=== PATIENT | male | born 1955 | race Caucasian/White ===

== ENCOUNTER 2020-07-25 14:17 | Inpatient (IN) | payer MEDICAID ==
[2020-07-25] MEDS ORDERED: Acetaminophen 325 MG Tab PO PRN ×2 (15:38→15:45)
[2020-07-25] MEDS ORDERED: Ondansetron 4 MG Tab.DIS PO PRN ×2 (15:38→15:45)
[2020-07-25] MEDS ORDERED: PROMETHAZINE TOP PRN (15:45)
[2020-07-25] MEDS ORDERED: Testosterone Cypionate 200 MG/ML MDV IM SCH (15:45)
[2020-07-25] MEDS ORDERED: BENZOCAINE PO PRN (15:45)
[2020-07-25] MEDS ORDERED: Ibuprofen 200 MG Tab PO PRN (15:45)
[2020-07-25] MEDS ORDERED: [UNRECOGNIZED DRUG - OTHER] PO PRN (15:45)
[2020-07-25] MEDS ORDERED: Albuterol 8 GM Inhaler INH PRN (15:45)
[2020-07-25] MEDS ORDERED: MENTHOL PO PRN (15:45)
[2020-07-25] MEDS ORDERED: DIPHENHYD PO SCH (17:30)
[2020-07-25] MEDS ORDERED: NYSTATIN PO SCH (17:30)
[2020-07-25] MEDS ORDERED: metFORMIN 500 MG Tab #OWN MED# PO SCH (17:30)
[2020-07-25] MEDS ORDERED: LIDOCAINE PO SCH (17:30)
--- NOTE | 2020-07-25 17:42 | PCM.PN ---
- General Info Date of Service: 07/25/20 Functional Status: Reports: Pain Controlled, Ambulating (by self to bathroom and back to chair) Pain Score: 4 - Review of Systems General: Reports: Weakness (generally weak in legs), Fatigue HEENT: Reports: No Symptoms Pulmonary: Reports: Shortness of Breath, Cough, Sputum. Denies: Hemoptysis Cardiovascular: Denies: Chest Pain, Palpitations, Edema, Lightheadedness Gastrointestinal: Reports: No Symptoms Genitourinary: Reports: No Symptoms Musculoskeletal: Reports: No Symptoms Skin: Reports: No Symptoms Neurological: Reports: No Symptoms. Denies: Headache, Seizure, Syncope, Change in Speech Psychiatric: Reports: No Symptoms - Patient Data Vitals - Most Recent: Last Vital Signs Temp 96.9 F 07/25/20 16:52 Pulse 106 H 07/25/20 16:52 Resp 28 H 07/25/20 16:52 BP 111/71 07/25/20 16:52 Pulse Ox 92 L 07/25/20 16:52 Weight - Most Recent: 165 lb 11.2 oz Med Orders - Current: Current Medications Acetaminophen (Tylenol) 650 mg PO Q4H PRN PRN Reason: Pain (Mild 1-3)/fever Acetaminophen (Tylenol) 650 mg PO Q6H PRN PRN Reason: Pain/Fever Aspirin (Halfprin) 81 mg PO DAILY [facility] Budesonide (Pulmicort) 0.5 mg NEB BIDRT [facility] Cyclobenzaprine HCl (Flexeril) 10 mg PO TID [facility] Fentanyl (Duragesic) 75 mcg TOP Q72H [facility] Ibuprofen (Motrin) 600 mg PO TID PRN PRN Reason: Pain/Fever Metformin HCl (Glucophage) 500 mg PO BIDMEALS [facility] Metoprolol Succinate (Toprol Xl) 75 mg PO BEDTIME [facility] Nicotine (Habitrol) 21 mg TOP DAILY [facility] Non-Formulary Medication (Albuterol Sulfate [Proair Respiclick]) 2 puff INH Q4H PRN PRN Reason: Shortness of Breath Non-Formulary Medication (Benzocaine/Menthol [Cepacol Sore Throat Lozenge]) 1 each PO Q4H PRN PRN Reason: Sore Throat Non-Formulary Medication (Cholecalciferol (Vitamin D3) [Vitamin D3]) 2,000 unit PO DAILY [facility] Non-Formulary Medication (Dexlansoprazole [Dexilant]) 60 mg PO DAILY [facility] Non-Formulary Medication (Diphenhyd/Lidocaine/Nystatin) 15 ml PO WITHMEALSANDBED [facility] Non-Formulary Medication (Hydromorphone [Dilaudid]) 4 mg PO Q4H PRN PRN Reason: Pain Non-Formulary Medication (Insulin Detemir) 30 units SUBCUT BEDTIME [facility] Non-Formulary Medication (Magnesium Oxide [Magnesium Oxide]) 400 mg PO BID [facility] Non-Formulary Medication (Ondansetron) 8 mg PO Q8H PRN PRN Reason: Nausea Non-Formulary Medication (Promethazine Topical Gel) 1 applic TOP Q6H PRN PRN Reason: Nausea Non-Formulary Medication (Rosuvastatin [Crestor]) 10 mg PO BEDTIME [facility] Non-Formulary Medication (Spiriva Respimat ) 2 puff INH DAILY [facility] Nystatin (Nystatin Ointment) gm TOP BID [facility] Ondansetron HCl (Zofran Odt) 4 mg PO Q4H PRN PRN Reason: nausea, able to take PO Pantoprazole Sodium (Protonix) 40 mg PO DAILY [facility] Prednisone (Prednisone) 20 mg PO DAILY@1200 [facility] Stop: 07/28/20 12:01 Testosterone Cypionate (Depo-Testosterone) 200 mg IM Q30D [facility] - Exam General: Alert, Oriented, Cooperative, No Acute Distress Neck: Supple, Trachea Midline, No JVD Lungs: Normal Respiratory Effort, Crackles (coarse), Rhonchi Cardiovascular: Regular Rate, Regular Rhythm GI/Abdominal Exam: Soft, Non-Tender Back Exam: Normal Inspection, Full Range of Motion Extremities: Normal Inspection, Normal Range of Motion, Non-Tender, No Pedal Edema, Normal Capillary Refill Peripheral Pulses: 2+: Radial (L), Radial (R), Posterior Tibial (L), Posterior Tibial (R) Skin: Warm, Dry, Intact Neurological: No New Focal Deficit, Normal Speech, Strength Equal Bilateral, Sensation Intact, Cranial Nerves Intact. No: Normal Gait (slow, weak, but able. ) Psy/Mental Status: Alert, Normal Affect, Normal Mood Sepsis Event Note - Focused Exam Vital Signs: Vital Signs Temp Pulse Resp BP Pulse Ox 07/25/20 16:52 96.9 F 106 H 28 H 111/71 92 L - Problem List Review Problem List Initiated/Reviewed/Updated: Yes - Plan Plan:: This patient was discharged from [facility] today and sent here for swing bed admit. Patient has lung cancer metastasis to liver and bone. Patient is alert and oriented. He is a Full Code. Patient seems to have some, but poor understanding of why he is here for swing bed. Patient reports that he is here go get his infection in his lungs better and to get stronger. I discussed with the patient about his lung cancer and possible end of life care. He reports he would like to just get stronger, to maybe walk with a cane or walker and then get back home. He reports that he needs to get his lungs better so he can get back to doing chemo. However, he has also told me the doctors discharged him from [place] because they dont know what else to do about his cancer. The patient has refused hospice care. I will admit this patient swing for PT. He is currently not in distress. But, his prognosis is very poor due to his respiratory failure and metastatic cancer. Depending how long he stays swing bed here, I think he will during this admit.
[2020-07-25] MEDS ORDERED: metFORMIN 500 MG Tab PO SCH (19:00)
[2020-07-25] MEDS ORDERED: Insulin Glarg,Human.Rec.Analog 100 Unit/ML SUBCUT SCH (20:00)
[2020-07-25] MEDS ORDERED: Metoprolol Succinate 25 MG Tab.ER PO SCH (20:00)
[2020-07-25] MEDS ORDERED: ROSUVASTATIN 10 MG PO SCH (20:00)
[2020-07-25] MEDS ORDERED: fentaNYL 75 MCG/HR Transdermal Patch TOP SCH (20:00)
[2020-07-25] MEDS ORDERED: FENTANYL 75 MCG/HR TOP SCH (20:15)
[2020-07-25] MEDS: Cyclobenzaprine 10 MG Tab PO SCH (20:28)
[2020-07-25] MEDS: Budesonide 0.5 MG/2 ML Neb Susp NEB SCH (20:29)
[2020-07-25] MEDS: MAGNESIUM OXIDE 400 MG PO SCH (20:32)
[2020-07-25] MEDS: metFORMIN 500 MG Tab #OWN MED# PO SCH (20:57)
[2020-07-25] MEDS ORDERED: METOPROLOL SUCCINATE 100 MG PO SCH (21:00)
[2020-07-25] MEDS: HYDROMORPHONE 4 MG PO PRN (22:45)
[2020-07-25] MEDS ORDERED: Temazepam 15 MG Cap PO PRN (23:18)
[2020-07-26] MEDS: Nystatin Ointment 15 GM Tube TOP SCH ×2 (02:05→08:28)
[2020-07-26] MEDS ORDERED: Albuterol/Ipratropium 3.0-0.5 MG/3 ML Neb Soln NEB ONE ×3 (04:26→10:18)
[2020-07-26] MEDS ORDERED: methylPREDNISolone Sodium Succinate 125 MG/2 ML SDV IVPUSH STA (04:29)
[2020-07-26] MEDS ORDERED: Furosemide 40 MG/4 ML VIAL IVPUSH ONE (04:39)
[2020-07-26] MEDS ORDERED: Albuterol/Ipratropium 3.0-0.5 MG/3 ML Neb Soln ONE (04:46)
--- NOTE | 2020-07-26 04:46 | PCM.PN ---
- General Info Date of Service: 07/26/20 Functional Status: Reports: New Symptoms - Review of Systems General: Reports: No Symptoms HEENT: Reports: No Symptoms Pulmonary: Reports: Shortness of Breath Cardiovascular: Reports: No Symptoms Gastrointestinal: Reports: No Symptoms Genitourinary: Reports: No Symptoms Musculoskeletal: Reports: No Symptoms Skin: Reports: No Symptoms Neurological: Reports: No Symptoms Psychiatric: Reports: No Symptoms - Patient Data Vitals - Most Recent: Last Vital Signs Temp 98.2 F 07/25/20 19:14 Pulse 114 H 07/25/20 19:14 Resp 18 07/25/20 19:14 BP 91/66 07/25/20 19:14 Pulse Ox 93 L 07/25/20 23:00 Weight - Most Recent: 165 lb 11.2 oz Lab Results Last 24 Hours: Laboratory Results - last 24 hr 07/25/20 Range/Units 20:32 POC Glucose 280 H (75-105) mg/dl Med Orders - Current: Current Medications Acetaminophen (Tylenol) 650 mg PO Q4H PRN PRN Reason: Pain (Mild 1-3)/fever Acetaminophen (Tylenol) 650 mg PO Q6H PRN PRN Reason: Pain/Fever Albuterol (Ventolin Hfa) 0 gm INH Q4H PRN PRN Reason: Shortness of Breath Aspirin (Halfprin) 81 mg PO DAILY [facility] Budesonide (Pulmicort) 0.5 mg NEB BIDRT [facility] Last Admin: 07/25/20 20:29 Dose: 0.5 mg Documented by: Cholecalciferol (Vitamin D3) 50 mcg PO DAILY [facility] Cyclobenzaprine HCl (Flexeril) 10 mg PO TID [facility] Last Admin: 07/25/20 20:28 Dose: 10 mg Documented by: Fentanyl (Duragesic) 75 mcg TOP Q72H [facility] Last Admin: 07/26/20 02:03 Dose: Not Given Documented by: Ibuprofen (Motrin) 600 mg PO TID PRN PRN Reason: Pain/Fever Insulin Glargine (Lantus) 30 unit SUBCUT BEDTIME [facility] Last Admin: 07/25/20 20:35 Dose: 30 units Documented by: Metformin HCl (Glucophage) 500 mg PO BIDMEALS [facility] Metformin HCl (Glucophage) 500 mg PO BIDMEALS [facility] Stop: 07/26/20 08:01 Last Admin: 07/25/20 20:57 Dose: 500 mg Documented by: Metoprolol Succinate (Toprol Xl) 100 mg PO BEDTIME [facility] Last Admin: 07/25/20 20:56 Dose: Not Given Documented by: Miscellaneous Information (Remove Patch) 1 ea TRDERM Q72H [facility] Miscellaneous Information (Remove Patch) 1 ea TRDERM Q24H [facility] Nicotine (Habitrol) 21 mg TOP DAILY [facility] Non-Formulary Medication (Benzocaine/Menthol [Cepacol Sore Throat Lozenge]) 1 each PO Q4H PRN PRN Reason: Sore Throat Dexlansoprazole [ Dexilant] 60 Mg #Own Med# 60 mg PO DAILY [facility] Non-Formulary Medication (Diphenhyd/Lidocaine/Nystatin) 15 ml PO WITHMEALSANDBED [facility] Hydromorphone [ Dilaudid] 4 Mg #Own Med# 4 mg PO Q4H PRN PRN Reason: Pain Last Admin: 07/25/20 22:45 Dose: 4 mg Documented by: Magnesium Oxide 400 (Mg #Own Med#) 400 mg PO BID [facility] Last Admin: 07/25/20 20:32 Dose: 400 mg Documented by: Non-Formulary Medication (Promethazine Topical Gel) 1 applic TOP Q6H PRN PRN Reason: Nausea Rosuvastatin [ Crestor] 10 Mg #Own Med# 10 mg PO BEDTIME [facility] Last Admin: 07/25/20 20:57 Dose: 10 mg Documented by: Spiriva Respimat 2. 5mcg/Actuation Inhaler #Own Med# 2 puff INH DAILY [facility] Nystatin (Nystatin Ointment) 0 gm TOP BID [facility] Last Admin: 07/26/20 02:05 Dose: Not Given Documented by: Ondansetron HCl (Zofran Odt) 4 mg PO Q4H PRN PRN Reason: nausea, able to take PO Ondansetron HCl (Zofran Odt) 8 mg PO Q8H PRN PRN Reason: Nausea Patient's Own MedicationLosartan /Hctz 100/25 Mg 1 each PO DAILY [facility] Prednisone (Prednisone) 20 mg PO DAILY@1200 [facility] Stop: 07/28/20 12:01 Temazepam (Restoril) 15 mg PO BEDTIME PRN PRN Reason: Insomnia Last Admin: 07/25/20 23:32 Dose: 15 mg Documented by: Discontinued Medications Albuterol/Ipratropium (Duoneb 3.0-0.5 Mg/3 Ml) 3 ml NEB ONETIME ONE Stop: 07/26/20 04:27 Last Admin: 07/26/20 04:37 Dose: 3 ml Documented by: Albuterol/Ipratropium (Duoneb 3.0-0.5 Mg/3 Ml) 3 ml NEB ONETIME ONE Stop: 07/26/20 04:27 Last Admin: 07/26/20 04:37 Dose: 3 ml Documented by: Albuterol/Ipratropium (Duoneb 3.0-0.5 Mg/3 Ml) Confirm Administered Dose 6 ml .ROUTE .STK-MED ONE Stop: 07/26/20 04:47 Fentanyl (Duragesic) 75 mcg TOP Q72H [facility] Furosemide (Lasix) 40 mg IVPUSH ONETIME ONE Stop: 07/26/20 04:40 Metformin HCl (Glucophage) 500 mg PO BIDMEALS [facility] Stop: 07/26/20 08:01 Metformin HCl (Glucophage) 500 mg PO BIDMEALS [facility] Stop: 07/26/20 17:31 Metformin HCl (Glucophage) 500 mg PO BIDMEALS [facility] Stop: 07/26/20 17:31 Methylprednisolone Sodium Succinate (Solu-Medrol) 125 mg IVPUSH NOW STA Stop: 07/26/20 04:30 Last Admin: 07/26/20 04:41 Dose: 125 mg Documented by: Metoprolol Succinate (Toprol Xl) 75 mg PO BEDTIME [facility] - Exam Quality Assessment: Supplemental Oxygen (4L NC at 66%, Converted to 15L NRB to 90%.) General: Severe Distress (Respiratory Distress) Neck: Trachea Midline, No JVD Lungs: Rales (Sounds Wet throughout.), Rhonchi (Coarse), Other (Tripod position, pursed lip breathing, accessory muscle use. Respiratory Distress. ) Cardiovascular: Tachycardia (120s) Sepsis Event Note - Evaluation Sepsis Screening Result: No Definite Risk - Focused Exam Vital Signs: Vital Signs Temp Pulse Resp BP Pulse Ox Pulse Ox 07/25/20 23:00 93 L 07/25/20 19:14 98.2 F 114 H 18 91/66 93 L 07/25/20 16:52 96.9 F 106 H 28 H 111/71 92 L - Problem List Review Problem List Initiated/Reviewed/Updated: Yes - My Orders Last 24 Hours: My Active Orders 07/25/20 23:18 Temazepam [Restoril] 15 mg PO BEDTIME PRN 07/26/20 04:26 RT Aerosol Therapy [RC] ASDIRECTED RT Aerosol Therapy [RC] ASDIRECTED 07/26/20 08:00 Patient's Own Medication [Ptom] 1 each PO DAILY - Plan Plan:: 07/25/2020 1700 This patient was discharged from [facility] today and sent here for swing bed admit. Patient has lung cancer metastasis to liver and bone. Patient is alert and oriented. He is a Full Code. Patient seems to have some, but poor understanding of why he is here for swing bed. Patient reports that he is here go get his infection in his lungs better and to get stronger. I discussed with the patient about his lung cancer and possible end of life care. He reports he would like to just get stronger, to maybe walk with a cane or walker and then get back home. He reports that he needs to get his lungs better so he can get back to doing chemo. However, he has also told me the doctors discharged him from [place] because they dont know what else to do about his cancer. The patient has refused hospice care. I will admit this patient swing for PT. He is currently not in distress. But, his prognosis is very poor due to his respiratory failure and metastatic cancer. Depending how long he stays swing bed here, I think he could during this admit due to his metastasis and poor/guarded prognosis. 07/26/2020 0420am I was told by Bridgette DURAN the patient had just fallen from slipping while trying to get up without assistance, and was struggling to breath. She reports he is having a hard time breathing. I went and saw this patient, the patient is sitting up on the side of his bed in a tripod position, pursed lip breathing, not able to talk. His oxygen saturation is 66% on 4L NC. Patient placed on a NRB at 15L, to 90% saturation. Duonebs are ordered x2. Patient lung sounds throughout, coarse as before, but now sound more wet. No flail chest or splinting to indicate a pneumo, but will CXR. I will also order Lasix to see if this helps as well due to wet sound. 07/26/2020 0450am Patient is now saturating 97% on NRB 15L. Patient is now laying in bed with HOB elevated 45 degrees. He does have pursed lip breathing, but his respiratory rate is now 28, he is now able to talk to me in sentences. He is now talking and reports is starting to feel better. However, no IV access has been able to be obtained from multiple attempts. RNs to continue attempts to gain IV access. Once IV access is obtained, to give IV medications. If unable to obtain an IV, may consider IM medications. I asked patient earlier about his code status and it was Full Code. I again asked him about his code status about intubation, vent, and CPR, medications. He does not answer me. He looks at me, but does not verbally answer. I asked him 3 times, still no verbal response to my question. But, when I ask him about orientation, he verbally responds without issue and correctly. I again explain its important to know his code status, he again for the 4th time does not answer me. He will remain a Full Code. 07/26/2020 0535am RN unable to obtain IV access after multiple attempts. Have ordered medications IM instead of IV. Patient to radiology for CXR. 07/26/2020 0555am Patient failed to mention he has a port, this was seen on CXR. No visibly seen well on chest during exam. Will access port and give the previous ordered medications now via port access, not IM. CXR: no edema.
[2020-07-26] MEDS ORDERED: methylPREDNISolone Sodium Succinate 125 MG/2 ML SDV IM STA (05:36)
[2020-07-26] MEDS ORDERED: Furosemide 40 MG/4 ML VIAL IM ONE (05:36)
[2020-07-26] MEDS ORDERED: Hydrochlorothiazide 25 MG Tab PO SCH (08:00)
[2020-07-26] MEDS ORDERED: metFORMIN 500 MG Tab #OWN MED# PO SCH ×3 (08:00→17:30)
[2020-07-26] MEDS ORDERED: DEXLANSOPRAZOLE 60 MG PO SCH (08:00)
[2020-07-26] MEDS ORDERED: Nicotine 21 MG/24 Hr Patch TOP SCH (08:00)
[2020-07-26] MEDS ORDERED: SPIRIVA RESPIMAT INH SCH (08:00)
[2020-07-26] MEDS ORDERED: Aspirin 81 MG Tab.EC PO SCH (08:00)
[2020-07-26] MEDS ORDERED: LOSARTAN PO SCH (08:00)
[2020-07-26] MEDS ORDERED: HCTZ PO SCH (08:00)
[2020-07-26] MEDS ORDERED: Cholecalciferol (Vitamin D3) 25 MCG Tab PO SCH (08:00)
[2020-07-26] MEDS ORDERED: Pantoprazole 40 MG Tab.CR PO SCH (08:00)
[2020-07-26] MEDS ORDERED: Losartan 100 MG Tab PO SCH (08:00)
[2020-07-26] MEDS: MAGNESIUM OXIDE 400 MG PO SCH (08:28)
[2020-07-26] MEDS: metFORMIN 500 MG Tab #OWN MED# PO SCH (08:28)
[2020-07-26] MEDS: HYDROMORPHONE 4 MG PO PRN (08:38)
[2020-07-26] MEDS: Budesonide 0.5 MG/2 ML Neb Susp NEB SCH (08:38)
[2020-07-26] MEDS: Cyclobenzaprine 10 MG Tab PO SCH (08:38)
[2020-07-26 08:52] LABS: CHLORIDE,CL 96 mEq/L (98-106); SODIUM,NA 134 mEq/L (136-145)
[2020-07-26] MEDS ORDERED: Iopamidol 755 Mg/ML 100 ML Bottle IVPUSH ONE (09:33)
[2020-07-26 09:41] LABS: O2 DELIVERY DEVICE NASAL CANNULA
[2020-07-26 09:42] LABS: BICARBONATE,ARTERIAL 28.4 mm/L (22.0-26.0); O2 SATURATION ARTERIAL 81 % (95-98); PCO2 ARTERIAL 42 mm/Hg0 (35-45); PO2 ARTERIAL 44 mm/Hg (80-100)
[2020-07-26] MEDS ORDERED: HYDROmorphone 1 MG/ML Syringe IVPUSH ONE (11:29)
[2020-07-26] MEDS ORDERED: Ondansetron 4 MG/2 ML SDV IVPUSH STA (11:29)
--- NOTE | 2020-07-26 11:34 | PCM.DCSUM1 ---
Discharge Summary - Hospital Course HPI Initial Comments: 07/26/2020 0900am I was called by RN ELIEZER about this patient. He reports the patient again is in respiratory distress, short of breath, and oxygen saturation in the low 80s. I went and saw this patient. Patient is sitting up in a tripod position over the bed again using accessory muscles to breath. He is breathing about 34/min, on a NRB 15L, oxygen showed 94%. Taken off NRB and transitioned to NC at 4L NC oxygen saturation is 81% by ABG on 4L NC. I ordered a EKG, shows sinus tach 133. Troponin negative. Patient also appears diaphoretic. I will order a CTA of the chest to r/o PE. I asked the patient again about code status, he does not give me a clear answer. Unknown if patient port is a ct ango powerport. RN trying to find this out. Continue full code. 07/26/2020 0945am Called and spoke to [facility] about this patient. They paged hospitalist, who has taken care of this patient. They would like patient to go to the ICU. They paged ICU. I spoke to Dr. Dee ICU about this patient. He reports that it could be a PE or just his metastasis. He reports to do the CTA as ordered, as they looked in patient history and the port is able to be used. If the CTA is PE, give heperin. If not, do not. Patient will need to have his Metformin held. Dr. Dee reports to have the patient come to the ER. Dr. Brown is the accepting ER provider. At this time, will not intubate this patient. He is maintaining oxygen saturation on 4L NC at 90%. He still appears in respiratory distress. I feel with his lung cancer, if intubated, may be a difficulty extubate. Flight has been paged and set up by [facility]. Will transfer patient. Risk vs benefits explained to this patient and he has accepted. There is no local transfer ground capabilities. We do not have bipap/cpap capabilities. The risk of transfer are mvc, flight crash, , intubation, . The risk of staying in [place] is , worsening of condition. The benefits of transfer are icu, vent, cpap, bipap, insurance executive, cancer doctor. The benefits of staying in [place] is none. 07/26/2020 1152am CTA chest shows NO PEs. Extensive infiltrates appear about the same as June. Will not do Heparin. Patient is actually breathing better currently at about 28/min, does not appear as distressed. He is conversing in complete sentences at this time. Called and spoke to CHELLE [facility] about abx preference, will order these. - Discharge Data Discharge Date: 07/26/20 Discharge Disposition: DC/Tfer to Acute Hospital 02 Condition: Poor - Referral to Home Health Primary Care Physician: PCP None - Patient Summary/Data Consults: Consultations 07/25/20 15:43 PT Evaluation and Treatment [CONS] Routine - Discharge Plan Home Medications: Home Meds Aspirin [Adult Low Dose Aspirin EC] 81 mg PO DAILY 08/30/14 [History] Cholecalciferol (Vitamin D3) [Vitamin D3] 2,000 unit PO DAILY 08/30/14 [History] metFORMIN [Glucophage] 500 mg PO BIDMEALS #120 tablet 09/08/16 [Rx] Acetaminophen 650 mg PO Q6H PRN 07/25/20 [History] Albuterol Sulfate [Proair Respiclick] 2 puff INH Q4H PRN 07/25/20 [History] Benzocaine/Menthol [Cepacol Sore Throat Lozenge] 1 each PO Q4H PRN 07/25/20 [History] Cyclobenzaprine [Flexeril] 10 mg PO TID 07/25/20 [History] Dexlansoprazole [Dexilant] 60 mg PO DAILY 07/25/20 [History] Diphenhyd/Lidocaine/Nystatin [First-Bxn Mouthwash] 15 ml PO WITHMEALSANDBED 07/25/20 [History] HYDROmorphone [Dilaudid] 4 mg PO Q4H PRN 07/25/20 [History] Ibuprofen 600 mg PO TID PRN 07/25/20 [History] Insulin Detemir [Levemir Flextouch] 30 units SUBCUT BEDTIME 07/25/20 [History] Magnesium Oxide 400 mg PO BID 07/25/20 [History] Metoprolol Succinate 100 mg PO BEDTIME 07/25/20 [History] Nicotine [Nicotine Patch] 21 mg TD DAILY 07/25/20 [History] Nystatin [Nystatin Ointment] 1 applic TOP BID 07/25/20 [History] Ondansetron [Zofran Odt] 8 mg PO Q8H PRN 07/25/20 [History] Pantoprazole [ProTONIX] 40 mg PO DAILY 07/25/20 [History] Promethazine Topical Gel 1 applic TOP Q6H PRN 07/25/20 [History] Rosuvastatin [Crestor] 10 mg PO BEDTIME 07/25/20 [History] Spiriva Respimat 2 puff INH DAILY 07/25/20 [History] Testosterone Cypionate [Depo-Testosterone] 200 mg IM Q30D 07/25/20 [History] fentaNYL [Duragesic] 75 mcg TD Q72H 07/25/20 [History] Losartan/Hydrochlorothiazide [Losartan-HCTZ 100-25 MG] 1 tab PO DAILY 07/26/20 [History] - Discharge Summary/Plan Comment DC Time >30 min.: No - General Info Functional Status: Reports: New Symptoms - Review of Systems General: Reports: Weakness, Fatigue, Malaise HEENT: Reports: No Symptoms Pulmonary: Reports: Shortness of Breath, Cough Cardiovascular: Reports: No Symptoms Gastrointestinal: Reports: No Symptoms Genitourinary: Reports: No Symptoms Musculoskeletal: Reports: No Symptoms Skin: Reports: Diaphoresis Neurological: Reports: No Symptoms Psychiatric: Reports: No Symptoms - Patient Data Vitals - Most Recent: Last Vital Signs Temp 98.5 F 07/26/20 08:00 Pulse 142 H 07/26/20 08:00 Resp 36 H 07/26/20 08:00 BP 111/78 07/26/20 08:00 Pulse Ox 94 L 07/26/20 08:58 Weight - Most Recent: 165 lb 11.2 oz Lab Results - Last 24 hrs: Laboratory Results - last 24 hr 07/25/20 07/26/20 07/26/20 Range/Units 20:32 07:22 07:22 WBC 7.6 (5.0-10.0) 10^3/uL RBC 3.93 L (4.50-6.00) 10^6/uL Hgb 11.9 L (14.0-18.0) g/dL Hct 36.1 L (40.0-54.0) % MCV 91.9 (82.0-94.0) fL MCH 30.3 (27.0-32.0) pg MCHC 33.0 (33.0-38.0) g/dL RDW Coeff of Mahesh 18.4 H (11.0-15.0) % Plt Count 126 L (150-400) 10^3/uL Neut % (Auto) 88.3 H (35-85) % Lymph % (Auto) 5.1 L (10-55) % [place] % (Auto) 5.2 (0-16) % Eos % (Auto) 1.3 (0-5) % Baso % (Auto) 0.1 (0-3) % Neut # (Auto) 6.74 (1.80-7.00) 10^3/uL Lymph # (Auto) 0.39 L (1.00-4.80) 10^3/uL [place] # (Auto) 0.40 (0.00-0.80) 10^3/uL Eos # (Auto) 0.10 (0.00-0.45) 10^3/uL Baso # (Auto) 0.01 10^3/uL ABG pH (7.35-7.45) ABG pCO2 (35-45) mm/Hg0 ABG pO2 (80-100) mm/Hg ABG HCO3 (22.0-26.0) mm/L ABG O2 Saturation (95-98) % ABG Base Excess (-2.0-3.0) Davie Test O2 Delivery Device Oxygen Flow Rate Sodium 134 L (136-145) mEq/L Potassium 4.1 (3.5-5.0) mEq/L Chloride 96 L (98-106) mEq/L Carbon Dioxide 30 (21-32) mmol/L BUN 17 (7-18) mg/dL Creatinine 0.5 L (0.7-1.3) mg/dL Est Cr Clr Drug Dosing 143.22 mL/min Estimated GFR (MDRD) > 60 (>=60) mL/min Glucose 108 H (75-99) mg/dL POC Glucose 280 H (75-105) mg/dl Lactic Acid (0.4-2.0) mmol/L Calcium 8.7 (8.4-10.1) mg/dL Total Bilirubin 0.6 (0.0-1.0) mg/dL AST 37 (15-37) U/L ALT 94 H (12-78) U/L Alkaline Phosphatase 112 (46-116) U/L Lactate Dehydrogenase (100-190) U/L Creatine Kinase (35-232) U/L Troponin I (0.00-0.06) ng/mL C-Reactive Protein 2.7 H (0.2-0.8) mg/dL NT-Pro-B Natriuret Pep 384 (0-1000) pg/mL Total Protein 6.4 (6.4-8.2) g/dL Albumin 2.8 L (3.4-5.0) g/dL SARS CoV-2 RNA Rapid JUANY (NEGATIVE) 07/26/20 07/26/20 07/26/20 Range/Units 08:11 09:11 09:13 WBC (5.0-10.0) 10^3/uL RBC (4.50-6.00) 10^6/uL Hgb (14.0-18.0) g/dL Hct (40.0-54.0) % MCV (82.0-94.0) fL MCH (27.0-32.0) pg MCHC (33.0-38.0) g/dL RDW Coeff of Mahesh (11.0-15.0) % Plt Count (150-400) 10^3/uL Neut % (Auto) (35-85) % Lymph % (Auto) (10-55) % [place] % (Auto) (0-16) % Eos % (Auto) (0-5) % Baso % (Auto) (0-3) % Neut # (Auto) (1.80-7.00) 10^3/uL Lymph # (Auto) (1.00-4.80) 10^3/uL [place] # (Auto) (0.00-0.80) 10^3/uL Eos # (Auto) (0.00-0.45) 10^3/uL Baso # (Auto) 10^3/uL ABG pH 7.44 (7.35-7.45) ABG pCO2 42 (35-45) mm/Hg0 ABG pO2 44 L (80-100) mm/Hg ABG HCO3 28.4 H (22.0-26.0) mm/L ABG O2 Saturation 81 L (95-98) % ABG Base Excess 4.0 H (-2.0-3.0) Davie Test O2 Delivery Device Nasal cannula Oxygen Flow Rate Sodium (136-145) mEq/L Potassium (3.5-5.0) mEq/L Chloride (98-106) mEq/L Carbon Dioxide (21-32) mmol/L BUN (7-18) mg/dL Creatinine (0.7-1.3) mg/dL Est Cr Clr Drug Dosing mL/min Estimated GFR (MDRD) (>=60) mL/min Glucose (75-99) mg/dL POC Glucose 101 (75-105) mg/dl Lactic Acid (0.4-2.0) mmol/L Calcium (8.4-10.1) mg/dL Total Bilirubin (0.0-1.0) mg/dL AST (15-37) U/L ALT (12-78) U/L Alkaline Phosphatase (46-116) U/L Lactate Dehydrogenase (100-190) U/L Creatine Kinase (35-232) U/L Troponin I (0.00-0.06) ng/mL C-Reactive Protein (0.2-0.8) mg/dL NT-Pro-B Natriuret Pep (0-1000) pg/mL Total Protein (6.4-8.2) g/dL Albumin (3.4-5.0) g/dL SARS CoV-2 RNA Rapid JUANY Negative (NEGATIVE) 07/26/20 07/26/20 07/26/20 Range/Units 09:23 09:23 09:25 WBC (5.0-10.0) 10^3/uL RBC (4.50-6.00) 10^6/uL Hgb (14.0-18.0) g/dL Hct (40.0-54.0) % MCV (82.0-94.0) fL MCH (27.0-32.0) pg MCHC (33.0-38.0) g/dL RDW Coeff of Mahesh (11.0-15.0) % Plt Count (150-400) 10^3/uL Neut % (Auto) (35-85) % Lymph % (Auto) (10-55) % [place] % (Auto) (0-16) % Eos % (Auto) (0-5) % Baso % (Auto) (0-3) % Neut # (Auto) (1.80-7.00) 10^3/uL Lymph # (Auto) (1.00-4.80) 10^3/uL [place] # (Auto) (0.00-0.80) 10^3/uL Eos # (Auto) (0.00-0.45) 10^3/uL Baso # (Auto) 10^3/uL ABG pH Cancelled (7.35-7.45) ABG pCO2 Cancelled (35-45) mm/Hg0 ABG pO2 Cancelled (80-100) mm/Hg ABG HCO3 Cancelled (22.0-26.0) mm/L ABG O2 Saturation Cancelled (95-98) % ABG Base Excess Cancelled (-2.0-3.0) Davie Test Cancelled O2 Delivery Device Cancelled Oxygen Flow Rate Cancelled Sodium (136-145) mEq/L Potassium (3.5-5.0) mEq/L Chloride (98-106) mEq/L Carbon Dioxide (21-32) mmol/L BUN (7-18) mg/dL Creatinine (0.7-1.3) mg/dL Est Cr Clr Drug Dosing mL/min Estimated GFR (MDRD) (>=60) mL/min Glucose (75-99) mg/dL POC Glucose (75-105) mg/dl Lactic Acid 1.5 (0.4-2.0) mmol/L Calcium (8.4-10.1) mg/dL Total Bilirubin (0.0-1.0) mg/dL AST (15-37) U/L ALT (12-78) U/L Alkaline Phosphatase (46-116) U/L Lactate Dehydrogenase 302 H (100-190) U/L Creatine Kinase 29 L (35-232) U/L Troponin I < 0.017 (0.00-0.06) ng/mL C-Reactive Protein (0.2-0.8) mg/dL NT-Pro-B Natriuret Pep (0-1000) pg/mL Total Protein (6.4-8.2) g/dL Albumin (3.4-5.0) g/dL SARS CoV-2 RNA Rapid JUANY (NEGATIVE) Med Orders - Current: Current Medications Acetaminophen (Tylenol) 650 mg PO Q4H PRN PRN Reason: Pain (Mild 1-3)/fever Acetaminophen (Tylenol) 650 mg PO Q6H PRN PRN Reason: Pain/Fever Albuterol (Ventolin Hfa) 0 gm INH Q4H PRN PRN Reason: Shortness of Breath Aspirin (Halfprin) 81 mg PO DAILY [facility] Last Admin: 07/26/20 08:38 Dose: 81 mg Documented by: Budesonide (Pulmicort) 0.5 mg NEB BIDRT [facility] Last Admin: 07/26/20 08:38 Dose: 0.5 mg Documented by: Cholecalciferol (Vitamin D3) 50 mcg PO DAILY [facility] Last Admin: 07/26/20 08:38 Dose: 50 mcg Documented by: Cyclobenzaprine HCl (Flexeril) 10 mg PO TID [facility] Last Admin: 07/26/20 08:38 Dose: 10 mg Documented by: Fentanyl (Duragesic) 75 mcg TOP Q72H [facility] Last Admin: 07/26/20 02:03 Dose: Not Given Documented by: Hydromorphone HCl (Dilaudid) 1 mg IVPUSH ONETIME ONE Stop: 07/26/20 11:30 Ibuprofen (Motrin) 600 mg PO TID PRN PRN Reason: Pain/Fever Insulin Glargine (Lantus) 30 unit SUBCUT BEDTIME [facility] Last Admin: 07/25/20 20:35 Dose: 30 units Documented by: Metformin HCl (Glucophage) 500 mg PO BIDMEALS [facility] Metoprolol Succinate (Toprol Xl) 100 mg PO BEDTIME [facility] Last Admin: 07/25/20 20:56 Dose: Not Given Documented by: Miscellaneous Information (Remove Patch) 1 ea TRDERM Q72H [facility] Miscellaneous Information (Remove Patch) 1 ea TRDERM Q24H [facility] Nicotine (Habitrol) 21 mg TOP DAILY [facility] Last Admin: 07/26/20 08:38 Dose: 21 mg Documented by: Non-Formulary Medication (Benzocaine/Menthol [Cepacol Sore Throat Lozenge]) 1 each PO Q4H PRN PRN Reason: Sore Throat Dexlansoprazole [ Dexilant] 60 Mg #Own Med# 60 mg PO DAILY [facility] Last Admin: 07/26/20 08:27 Dose: 60 mg Documented by: Non-Formulary Medication (Diphenhyd/Lidocaine/Nystatin) 15 ml PO WITHMEALSANDBED [facility] Hydromorphone [ Dilaudid] 4 Mg #Own Med# 4 mg PO Q4H PRN PRN Reason: Pain Last Admin: 07/26/20 08:38 Dose: 4 mg Documented by: Magnesium Oxide 400 (Mg #Own Med#) 400 mg PO BID [facility] Last Admin: 07/26/20 08:28 Dose: 400 mg Documented by: Non-Formulary Medication (Promethazine Topical Gel) 1 applic TOP Q6H PRN PRN Reason: Nausea Rosuvastatin [ Crestor] 10 Mg #Own Med# 10 mg PO BEDTIME [facility] Last Admin: 07/25/20 20:57 Dose: 10 mg Documented by: Spiriva Respimat 2. 5mcg/Actuation Inhaler #Own Med# 2 puff INH DAILY [facility] Last Admin: 07/26/20 08:28 Dose: 2 puff Documented by: Nystatin (Nystatin Ointment) 0 gm TOP BID [facility] Last Admin: 07/26/20 08:28 Dose: Not Given Documented by: Ondansetron HCl (Zofran Odt) 4 mg PO Q4H PRN PRN Reason: nausea, able to take PO Ondansetron HCl (Zofran Odt) 8 mg PO Q8H PRN PRN Reason: Nausea Ondansetron HCl (Zofran) 4 mg IVPUSH NOW [facility] Stop: 07/26/20 11:30 Patient's Own MedicationLosartan /Hctz 100/25 Mg 1 each PO DAILY [facility] Last Admin: 07/26/20 08:28 Dose: 1 each Documented by: Prednisone (Prednisone) 20 mg PO DAILY@1200 [facility] Stop: 07/28/20 12:01 Temazepam (Restoril) 15 mg PO BEDTIME PRN PRN Reason: Insomnia Last Admin: 07/25/20 23:32 Dose: 15 mg Documented by: Discontinued Medications Albuterol/Ipratropium (Duoneb 3.0-0.5 Mg/3 Ml) 3 ml NEB ONETIME ONE Stop: 07/26/20 04:27 Last Admin: 07/26/20 04:37 Dose: 3 ml Documented by: Albuterol/Ipratropium (Duoneb 3.0-0.5 Mg/3 Ml) 3 ml NEB ONETIME ONE Stop: 07/26/20 04:27 Last Admin: 07/26/20 04:37 Dose: 3 ml Documented by: Albuterol/Ipratropium (Duoneb 3.0-0.5 Mg/3 Ml) Confirm Administered Dose 6 ml .ROUTE .STK-MED ONE Stop: 07/26/20 04:47 Last Admin: 07/26/20 06:41 Dose: Not Given Documented by: Albuterol/Ipratropium (Duoneb 3.0-0.5 Mg/3 Ml) 3 ml NEB ONETIME ONE Stop: 07/26/20 10:19 Last Admin: 07/26/20 10:40 Dose: 3 ml Documented by: Fentanyl (Duragesic) 75 mcg TOP Q72H [facility] Last Admin: 07/26/20 07:46 Dose: Not Given Documented by: Furosemide (Lasix) 40 mg IVPUSH ONETIME ONE Stop: 07/26/20 04:40 Last Admin: 07/26/20 04:49 Dose: 40 mg Documented by: Furosemide (Lasix) 40 mg IM ONETIME ONE Stop: 07/26/20 05:37 Last Admin: 07/26/20 07:47 Dose: Not Given Documented by: Iopamidol (Isovue-370 (76%)) 100 ml IVPUSH ONETIME ONE Stop: 07/26/20 09:34 Last Admin: 07/26/20 11:08 Dose: 100 ml Documented by: Metformin HCl (Glucophage) 500 mg PO BIDMEALS [facility] Last Admin: 07/26/20 07:46 Dose: Not Given Documented by: Metformin HCl (Glucophage) 500 mg PO BIDMEALS [facility] Stop: 07/26/20 08:01 Last Admin: 07/26/20 07:46 Dose: Not Given Documented by: Metformin HCl (Glucophage) 500 mg PO BIDMEALS [facility] Stop: 07/26/20 17:31 Metformin HCl (Glucophage) 500 mg PO BIDMEALS [facility] Stop: 07/26/20 17:31 Metformin HCl (Glucophage) 500 mg PO BIDMEALS [facility] Stop: 07/26/20 08:01 Last Admin: 07/26/20 08:28 Dose: 500 mg Documented by: Methylprednisolone Sodium Succinate (Solu-Medrol) 125 mg IVPUSH NOW [facility] Stop: 07/26/20 04:30 Last Admin: 07/26/20 04:41 Dose: 125 mg Documented by: Methylprednisolone Sodium Succinate (Solu-Medrol) 125 mg IM NOW [facility] Stop: 07/26/20 05:37 Last Admin: 07/26/20 07:47 Dose: Not Given Documented by: Metoprolol Succinate (Toprol Xl) 75 mg PO BEDTIME [facility] Last Admin: 07/26/20 07:47 Dose: Not Given Documented by: - Exam Quality Assessment: Reports: Supplemental Oxygen General: Reports: Alert, Oriented, Moderate Distress Neck: Reports: Supple, Trachea Midline, No JVD Lungs: Reports: Crackles (wet throughout), Rhonchi (coarse throughout) Cardiovascular: Reports: Tachycardia (120s) Back Exam: Reports: Normal Inspection Extremities: Normal Inspection, Normal Range of Motion, Non-Tender, No Pedal Edema, Normal Capillary Refill Skin: Reports: Warm, Intact, Moist Neurological: Reports: No New Focal Deficit Psy/Mental Status: Reports: Alert, Normal Affect, Anxious
[2020-07-26 11:37] LABS: PTT,PARTIAL THROMBOPLSTIN TIME 27.4 SEC (23.2-32.3)
[2020-07-26] MEDS ORDERED: Sodium Chloride 0.9% 500 ML IV ONE (12:00)
[2020-07-26] MEDS ORDERED: predniSONE 20 MG Tab PO SCH (12:00)
[2020-07-26] MEDS ORDERED: Cefepime 2 GM Vial IVPUSH ONE (12:04)
[2020-07-26 12:09] VITALS: BP 94/55; PULSE 126
[2020-07-27] MEDS ORDERED: REMOVE NICOTINE 21 MG TRDERM SCH (08:00)
[2020-07-28] MEDS ORDERED: [UNRECOGNIZED DRUG - REMARK] TRDERM SCH (20:00)
== END 2020-07-26 13:00 | DRG 189 ==
LOC: CC.MS 15:38
PROVIDERS: ADMIT Physician Assistant Medical; ATTEND Family Medicine
DX: J96.20 Acute and chronic respiratory failure, unspecified whether with hypoxia or hypercapnia (principal); C34.90 Malignant neoplasm of unspecified part of unspecified bronchus or lung; C78.7 Secondary malignant neoplasm of liver and intrahepatic bile duct; C79.51 Secondary malignant neoplasm of bone; Z20.828 Contact with and (suspected) exposure to other viral communicable diseases
CPT/HCPCS: 36415; 36600; 71045; 71275; 80053; 82550; 82803; 82962; 83605; 83615; 83880; 84484; 85025; 85610; 85730; 86140; 93005; 94640; A9270-GY; J1170; J1815-GY; J1940; J2405; J2930; J7040; J7512; J7620-GY; Q9967; U0002